=== PATIENT | female | born 1990 | race African-American/Black ===

== ENCOUNTER 2016-11-01 17:01 | Emergency (ER) | payer OTHER ==
[2016-11-01] MEDS ORDERED: IBUPROFEN 600 MG TAB As Ordered ONE (18:31)
[2016-11-01 18:36] LABS: BASO % 0.3 % (0.0-1.0); EOS # 0.4 K/mm3 (0.0-0.50); EOS % 4.6 % (0.0-3.0); LARGE UNSTAINED CELL # 0.2 K/mm3 (0.0-0.4); LARGE UNSTAINED CELL % 3.2 % (0.0-4.0); LYMPH # 3.3 K/mm3 (1.5-6.5); LYMPH % 40.4 % (24.0-44.0); MEAN CORPUSCULAR HEMOGLOBIN 27.9 pg (27.0-33.0); MEAN CORPUSCULAR HGB CONC 32.3 g/dl (32.0-36.5); MEAN CORPUSCULAR VOLUME 86.5 fl (80.0-96.0); MONO # 0.4 K/mm3 (0.0-0.8); MONO % 4.5 % (0.0-5.0); NEUTROPHILS # 3.6 K/mm3 (1.8-7.7); NEUTROPHILS % 47.1 % (36.0-66.0); PLATELET COUNT, AUTOMATED 281 k/mm3 (150-450); RED CELL DISTRIBUTION WIDTH 12.8 % (11.5-14.5); WHITE BLOOD COUNT 7.7 K/mm3 (4.0-10.0)
--- NOTE | 2016-11-01 19:10 | REPUSA ---
CLINICAL HISTORY: Vaginal bleeding for one week. TECHNIQUE: Realtime sonographic images were obtained in multiple projections. FINDINGS: The uterus is anteverted measuring 6.8 x 2.6 x 3.8 cm. The endometrial echo pattern is within normal limits measuring 2.5 mm. There is no evidence of free fluid within the pelvic cul-de-sac. The right ovary measures 1.8 x 2.2 x 1.5 cm and the left ovary measures 2.3 x 1.4 x 0.8 cm. Both ova rosa maria are free of solid or cystic mass. There is no evidence for abnormal vascularity. IMPRESSION: Unremarkable study. Thank you for your kind referral of this patient. We appreciate the opportunity to participate in thi s patient's care.
--- NOTE | 2016-11-01 20:13 | EDDOCDS ---
Physician Documentation [facility] Name: Keena Kelley Age: 26 yrs Sex: Female : 1990 Arrival Date: 11/01/2016 Time: 17:01 Bed I4 / M4 Private MD: Kenny Cage MD Disposition: 11/01/16 19:47 Discharged to Home/Self Care. Impression: Abnormal uterine and vaginal bleeding, unspecified, Acute vaginitis - BACTERIAL. - Condition is Stable. - Discharge Instructions: Abnormal Uterine Bleeding, Bacterial Vaginosis. - Prescriptions for Flagyl 500 mg Oral Tablet - take 1 tablet by ORAL route every 12 hours for 7 days; 14 tablet. - Medication Reconciliation, Local Pharmacy Hours form. - Follow up: Private Physician; When: 2 - 3 days; Reason: Recheck today's complaints, Continuance of care. - Problem is new. - Symptoms have improved. - Notes: PLEASE USE MEDICATION INSTRUTCED, FOLLOW UP WITH YOUR INSOLE TAPER DOCTOR IN 2-3 DAYS, RETURN TO THE ER IF THE SYMPTOMS WORSEN OR BECOME CONCERNING Historical: - Allergies: Strawberries (Rash); oranges (Anaphylaxis); - Home Meds: 1. Valtrex 1 gram Oral tab once daily (Last dose: 11/01/2016 07:00) 2. Ventolin Rotahaler/Rotacaps Inhl Unknown as needed (Last dose: Unknown) 3. Adderall XR 10 mg Oral cp24 1 cap once daily (Last dose: 11/01/2016 07:00) 4. Breo Ellipta 200-25 mcg/dose inhalation dsdv 1 puff once daily (Last dose: 11/01/2016 07:00) - PMHx: Asthma; Narcolepsy; hsv; - PSHx: none; - Social history: Smoking status: Patient states was never smoker of tobacco. No barriers to communication noted, Speaks appropriately for age. - Family history: Not pertinent. - : The pt / caregiver states he / she is not on anticoagulants. Home medication list is obtained from the patient. - Exposure Risk Screening:: None identified. DIRECT MARKETING ANALYST: 11/01 17:16 LMP 11/01/2016 ml6 Vital Signs: 17:03 BP 143 / 80; Pulse 75; Resp 18; Temp 98.3(T); Pulse Ox 98% on R/A; Weight 110.68 kg / dem1 244.01 lbs; Height 5 ft. 6 in. (167.64 cm); Pain 7/10; 19:53 BP 113 / 67; Pulse 62; Resp 18; Temp 99.4; Pulse Ox 97% ; Pain 6/10; ajs 17:03 Body Mass Index 39.38 (110.68 kg, 167.64 cm) dem1 MDM: 18:11 UCG by Nursing ordered. ck7 18:11 Set up pelvic ordered. ck7 18:11 IV Saline Lock ordered. ck7 18:11 NS 0.9% 1000 ml IV at bolus once ordered. ck7 18:13 CBC with Diff Ordered. EDMS 18:13 GC & Chlamydia Amplification Ordered. EDMS 18:13 Wet Prep Ordered. EDMS 18:13 -US Pelvic Non-Ob Complete Ordered. EDMS 18:13 DUPLEX SCAN LIMITED (DOPPLER)+US Ordered. EDMS 18:17 Ibuprofen 600 mg PO once ordered. ck7 18:24 Transvaginal NON- US Ordered. EDMS 18:36 Financial registration complete. gjb 18:46 [facility] Payment Agreement was scanned into [employer] and attached to record. gjb 19:17 CBC with Diff Reviewed. ck7 19:17 Wet Prep Reviewed. ck7 19:17 -US Pelvic Non-Ob Complete Reviewed. ck7 Point of Care Testing: Urine : 18:18 hCG Reading: Negative; Control Reading: Positive; ar3 Ranges: Administered Medications: 18:36 Drug: NS 0.9% 1000 ml [sodium chloride 0.9 % intravenous solution] Route: IV; Rate: jjr bolus; Site: left antecubital; 20:11 Follow up: IV Status: Completed infusion; IV Intake: 1000ml jf3 18:36 Drug: Ibuprofen 600 mg [ibuprofen 600 mg tablet (1 tabs)] Route: PO; jjr Signatures: Dispatcher [employer] EDMS Triston Calero, RN RN ml6 Elzbieta Can RN RN js13 Buzz Cox, RPA-C RPA-Cck7 Narinder Dong RN RN jf3 Le Morel gjb Gisell Anderson RN jjr The chart was reviewed and I authenticate all verbal orders and agree with the evaluation and treatment provided.Attachments: 18:46 [facility] Payment Agreement gjb MTDD
--- NOTE | 2016-11-01 20:13 | EDDOCDS ---
Nurse's Notes [facility] Name: Keena Kelley Age: 26 yrs Sex: Female : 1990 Arrival Date: 11/01/2016 Time: 17:01 Bed I4 / M4 Private MD: Kenny Cage MD Diagnosis: Abnormal uterine and vaginal bleeding, unspecified;Acute vaginitis-BACTERIAL Presentation: 11/01 17:13 Presenting complaint: Patient states: states that she has been having vaginal bleeding ml6 x 1 week, states sent here by Dr. Man for transvaginal US. Risk factors: The patient reports no loss of conciousness prior to arrival. This patient has not had a hysterectomy. This patient has not begun menopause. Adult Sepsis Screening: The patient does not have new or worsening altered mentation. Patient's respiratory rate is less than 22. Systolic blood pressure is greater than 100. Patient has a qSOFA score of 0- Negative Sepsis Screen. Suicide/Homicide risk assessment- the patient denies having any suicidal and/or homicidal ideations and does not present with any other emotional, behavioral or mental health complaints. Status: Patient is not a clinical services manager or dependent. Transition of care: patient was not received from another setting of care. 17:13 Acuity: RAYMUNDO Level 3 ml6 17:13 Method Of Arrival: Walkin/Carried/Asstd ml6 Triage Assessment: 17:16 General: Appears in no apparent distress, Behavior is appropriate for age, cooperative. ml6 Pain: Location: pelvis Pain currently is 3 out of 10 on a pain scale. Pain does not radiate. Quality of pain is described as crampy, Pain began 1 week BI DATA MODELER. HIV screening NA for this visit Offered previously. : Reports vaginal bleeding that is bright red. WATER TRAINER: 17:16 LMP 11/01/2016 ml6 Historical: - Allergies: Strawberries (Rash); oranges (Anaphylaxis); - Home Meds: 1. Valtrex 1 gram Oral tab once daily (Last dose: 11/01/2016 07:00) 2. Ventolin Rotahaler/Rotacaps Inhl Unknown as needed (Last dose: Unknown) 3. Adderall XR 10 mg Oral cp24 1 cap once daily (Last dose: 11/01/2016 07:00) 4. Breo Ellipta 200-25 mcg/dose inhalation dsdv 1 puff once daily (Last dose: 11/01/2016 07:00) - PMHx: Asthma; Narcolepsy; hsv; - PSHx: none; - Social history: Smoking status: Patient states was never smoker of tobacco. No barriers to communication noted, Speaks appropriately for age. - Family history: Not pertinent. - : The pt / caregiver states he / she is not on anticoagulants. Home medication list is obtained from the patient. - Exposure Risk Screening:: None identified. Screenin:50 Screening information is obtained from the patient. Fall risk: No risks identified. js13 Assistance ADL's: requires no assistance with activities of daily living. Abuse/DV Screen: The patient / caregiver reports he/she is: not in a situation that causes fear, pain or injury. Nutritional screening: No deficits noted. Advance Directives: There is no active DNR order. home support is adequate. Assessment: 18:28 General: Appears in no apparent distress, well nourished, well groomed, Behavior is jjr appropriate for age. Neurological: No deficits noted. Neurological: Reports headache since waking in triage room, right side of head. Respiratory: No deficits noted. : deferred to provider Reports cramping in bilateral lower quadrant(s) vaginal bleeding that is spotty. Derm: No deficits noted. 19:40 Adult Sepsis Screening: The patient does not have new or worsening altered mentation. rs3 Patient's respiratory rate is less than 22. Systolic blood pressure is greater than 100. General: Appears in no apparent distress, comfortable, Behavior is appropriate for age, cooperative. Pain: Location: abdomen Pain currently is 5 out of 10 on a pain scale. Quality of pain is described as crampy. Neurological: Level of Consciousness is awake, alert, Oriented to person, place, time. Respiratory: Airway is patent Respiratory effort is even, unlabored, Respiratory pattern is regular, symmetrical. Derm: Skin is normal. 20:09 General: Appears in no apparent distress, comfortable, Behavior is appropriate for age, jf3 cooperative. Neurological: Level of Consciousness is awake, alert, Oriented to person, place, time. Cardiovascular: Capillary refill < 3 seconds Chest pain is denied. Respiratory: Airway is patent Respiratory effort is even, unlabored, Respiratory pattern is regular, symmetrical. Derm: Skin is pink, warm & dry. Vital Signs: 17:03 BP 143 / 80; Pulse 75; Resp 18; Temp 98.3(T); Pulse Ox 98% on R/A; Weight 110.68 kg; dem1 Height 5 ft. 6 in. (167.64 cm); Pain 7/10; 19:53 BP 113 / 67; Pulse 62; Resp 18; Temp 99.4; Pulse Ox 97% ; Pain 6/10; ajs 17:03 Body Mass Index 39.38 (110.68 kg, 167.64 cm) [facility] Vitals: 17:03 Log In Time: November 01, 2016 at 15:47. [facility] ED Course: 17:02 Patient visited by Mariella Gonzalez. dem1 17:02 Kenny Cage is Private Physician. dem1 17:02 Patient moved to Waiting dem1 17:05 Patient moved to Pre RCE dem1 17:14 Triage Initiated ml6 17:38 Patient moved to Triage 1 ar3 17:50 The patient / caregiver is instructed regarding the plan of care and ED course. js13 17:50 No IV's were initiated during this patient's visit. No procedures done that require js13 assistance. 18:02 Buzz Cox RPA-C is PHCP. ck7 18:02 Jake Fields MD is Attending Physician. ck7 18:02 Patient visited by Buzz Cox RPA-C. ck7 18:11 Gisell Anderson, TED is Primary Nurse. ar3 18:11 Patient moved to I4 / M4 ar3 18:18 Patient visited by Harleen Mosley PCA. ar3 18:28 CBC with Diff Sent. jjr 18:28 Inserted saline lock: 20 gauge in left antecubital area and blood collected. Labs jjr drawn. (by ED staff). Sent per order to lab. 18:29 Patient visited by Gisell Anderson RN. jjr 18:29 Patient moved to Ultrasound br3 18:45 Patient moved to I4 / M4 br3 18:46 [facility] Payment Agreement was scanned into [employer] and attached to record. gjb 19:00 Patient visited by Buzz Cox RPA-C. ck7 19:06 Primary Nurse role handed off by Gisell Anderson, RN jjr 19:17 - Pelvic Non-Ob Complete Returned. EDMS 19:41 Patient visited by Fatoumata Belle RN. rs3 19:41 Patient visited by Buzz Cox RPA-C. ck7 19:53 Patient visited by Geraldine Carrion. ajs 20:09 Discontinued IV lock intact, bleeding controlled, pressure dressing applied, No jf3 redness/swelling at site. Administered Medications: 18:36 Drug: NS 0.9% 1000 ml [sodium chloride 0.9 % intravenous solution] Route: IV; Rate: jjr bolus; Site: left antecubital; 20:11 Follow up: IV Status: Completed infusion; IV Intake: 1000ml jf3 18:36 Drug: Ibuprofen 600 mg [ibuprofen 600 mg tablet (1 tabs)] Route: PO; jjr Point of Care Testing: Urine : 18:18 hCG Reading: Negative; Control Reading: Positive; ar3 Ranges: Intake: 20:11 IV: 1000.00ml; Total: 1000.00ml. jf3 Order Results: Lab Order: CBC with Diff; SPEC'M 11/01/16 18:24 Test: WHITE BLOOD COUNT; Value: 7.7; Range: 4.0-10.0; Units: K/mm3; Status: F Test: RED BLOOD COUNT; Value: 4.72; Range: 4.00-5.40; Units: M/mm3; Status: F Test: HEMOGLOBIN; Value: 13.2; Range: 12.0-16.0; Units: g/dl; Status: F Test: HEMATOCRIT; Value: 40.8; Range: 36.0-47.0; Units: %; Status: F Test: MEAN CORPUSCULAR VOLUME; Value: 86.5; Range: 80.0-96.0; Units: fl; Status: F Test: MEAN CORPUSCULAR HEMOGLOBIN; Value: 27.9; Range: 27.0-33.0; Units: pg; Status: F Test: MEAN CORPUSCULAR HGB CONC; Value: 32.3; Range: 32.0-36.5; Units: g/dl; Status: F Test: RED CELL DISTRIBUTION WIDTH; Value: 12.8; Range: 11.5-14.5; Units: %; Status: F Test: PLATELET COUNT, AUTOMATED; Value: 281; Range: 150-450; Units: k/mm3; Status: F Test: NEUTROPHILS %; Value: 47.1; Range: 36.0-66.0; Units: %; Status: F Test: LYMPH %; Value: 40.4; Range: 24.0-44.0; Units: %; Status: F Test: MONO %; Value: 4.5; Range: 0.0-5.0; Units: %; Status: F Test: EOS %; Value: 4.6; Range: 0.0-3.0; Abnormal: Above high normal; Units: %; Status: F Test: BASO %; Value: 0.3; Range: 0.0-1.0; Units: %; Status: F Test: LARGE UNSTAINED CELL %; Value: 3.2; Range: 0.0-4.0; Units: %; Status: F Test: NEUTROPHILS #; Value: 3.6; Range: 1.8-7.7; Units: K/mm3; Status: F Test: LYMPH #; Value: 3.3; Range: 1.5-6.5; Units: K/mm3; Status: F Test: MONO #; Value: 0.4; Range: 0.0-0.8; Units: K/mm3; Status: F Test: EOS #; Value: 0.4; Range: 0.0-0.50; Units: K/mm3; Status: F Test: BASO #; Value: 0.0; Range: 0.0-0.2; Units: K/mm3; Status: F Test: LARGE UNSTAINED CELL #; Value: 0.2; Range: 0.0-0.4; Units: K/mm3; Status: F Lab Order: Wet Prep; SPEC'M 11/01/16 18:24 Test: WET PREP; Value: WET PREP RESULT; Status: F Test: WET PREP; Value: MANY EPITHELIAL CELLS PRESENT; Status: F Test: WET PREP; Value: CLUE CELLS PRESENT; Status: F Test: WET PREP; Value: MANY SHORT RODS PRESENT; Status: F Test: WET PREP; Value: FEW WBC; Status: F Test: WET PREP; Value: FEW RBC; Status: F Radiology Order: -US Pelvic Non-Ob Complete Test: -US Pelvic Non-Ob Complete REASON FOR EXAMINATION: Vaginal Bleeding - Nn-; ; CLINICAL HISTORY: Vaginal bleeding for one week.; ; TECHNIQUE: Realtime sonographic images were obtained in multiple projections.; ; FINDINGS:; The uterus is anteverted measuring 6.8 x 2.6 x 3.8 cm. The endometrial echo pattern is within normal; limits measuring 2.5 mm.; ; There is no evidence of free fluid within the pelvic cul-de-sac.; ; The right ovary measures 1.8 x 2.2 x 1.5 cm and the left ovary measures 2.3 x 1.4 x 0.8 cm. Both ova; rosa maria are free of solid or cystic mass.; ; There is no evidence for abnormal vascularity.; ; IMPRESSION:; Unremarkable study.; ; Thank you for your kind referral of this patient. We appreciate the opportunity to participate in [facility]; s patient's care.; ; ; ; ; ; Outcome: 19:47 Discharge ordered by Provider. ck7 20:11 Discharge Assessment: Patient awake, alert and oriented x 3. No cognitive and/or jf3 functional deficits noted. Patient verbalized understanding of disposition instructions. patient administered narcotics - no. The following High Risk Discharge criteria are identified: None. Discharged to home ambulatory. Condition: good. Discharge instructions given to patient, Instructed on discharge instructions, follow up and referral plans. medication usage, Demonstrated understanding of instructions, medications, Pt was receptive of discharge instructions/ teaching. Ultrasound Study completed. Property :Personal belongings accompany Pt. 20:12 Patient left the ED. jf3 Signatures: Dispatcher [employer] EDMS Gisell Anderson, RN RN jFatoumata Quick,RN RN rs3 Triston Calero RN RN ml6 Elvira Anderson br3 Harleen Mosley, JUNIOR ART DIRECTOR JUNIOR ART DIRECTOR ar3 Geraldine Carrion Demeishia dem1 Sullivan, Jennifer,RN RN js13 Buzz Cox, RPA-C RPA-Cck7 Narinder Dong,TED RN jf3 Le Morel MTDD
--- NOTE | 2016-11-03 21:12 | EDDOCDS ---
Physician Documentation [facility] Name: Keena Kelley Age: 26 yrs Sex: Female : 1990 Arrival Date: 11/01/2016 Time: 17:01 Bed I4 / M4 Private MD: Kenny Cage MD Disposition: 11/01/16 19:47 Discharged to Home/Self Care. Impression: Abnormal uterine and vaginal bleeding, unspecified, Acute vaginitis - BACTERIAL. - Condition is Stable. - Discharge Instructions: Abnormal Uterine Bleeding, Bacterial Vaginosis. - Prescriptions for Flagyl 500 mg Oral Tablet - take 1 tablet by ORAL route every 12 hours for 7 days; 14 tablet. - Medication Reconciliation, Local Pharmacy Hours form. - Follow up: Private Physician; When: 2 - 3 days; Reason: Recheck today's complaints, Continuance of care. - Problem is new. - Symptoms have improved. - Notes: PLEASE USE MEDICATION INSTRUTCED, FOLLOW UP WITH YOUR CROZE CUTTER DOCTOR IN 2-3 DAYS, RETURN TO THE ER IF THE SYMPTOMS WORSEN OR BECOME CONCERNING Historical: - Allergies: Strawberries (Rash); oranges (Anaphylaxis); - Home Meds: 1. Valtrex 1 gram Oral tab once daily (Last dose: 11/01/2016 07:00) 2. Ventolin Rotahaler/Rotacaps Inhl Unknown as needed (Last dose: Unknown) 3. Adderall XR 10 mg Oral cp24 1 cap once daily (Last dose: 11/01/2016 07:00) 4. Breo Ellipta 200-25 mcg/dose inhalation dsdv 1 puff once daily (Last dose: 11/01/2016 07:00) - PMHx: Asthma; Narcolepsy; hsv; - PSHx: none; - Social history: Smoking status: Patient states was never smoker of tobacco. No barriers to communication noted, Speaks appropriately for age. - Family history: Not pertinent. - : The pt / caregiver states he / she is not on anticoagulants. Home medication list is obtained from the patient. - Exposure Risk Screening:: None identified. PYTHON PROGRAMMER: 11/01 17:16 LMP 11/01/2016 ml6 Vital Signs: 17:03 BP 143 / 80; Pulse 75; Resp 18; Temp 98.3(T); Pulse Ox 98% on R/A; Weight 110.68 kg / dem1 244.01 lbs; Height 5 ft. 6 in. (167.64 cm); Pain 7/10; 19:53 BP 113 / 67; Pulse 62; Resp 18; Temp 99.4; Pulse Ox 97% ; Pain 6/10; ajs 17:03 Body Mass Index 39.38 (110.68 kg, 167.64 cm) dem1 MDM: 18:11 UCG by Nursing ordered. ck7 18:11 Set up pelvic ordered. ck7 18:11 IV Saline Lock ordered. ck7 18:11 NS 0.9% 1000 ml IV at bolus once ordered. ck7 18:13 CBC with Diff Ordered. EDMS 18:13 GC & Chlamydia Amplification Ordered. EDMS 18:13 Wet Prep Ordered. EDMS 18:13 -US Pelvic Non-Ob Complete Ordered. EDMS 18:13 DUPLEX SCAN LIMITED (DOPPLER)+US Ordered. EDMS 18:17 Ibuprofen 600 mg PO once ordered. ck7 18:24 Transvaginal NON- US Ordered. EDMS 18:36 Financial registration complete. gjb 18:46 [facility] Payment Agreement was scanned into [employer] and attached to record. gjb 19:17 CBC with Diff Reviewed. ck7 19:17 Wet Prep Reviewed. ck7 19:17 -US Pelvic Non-Ob Complete Reviewed. ck7 11/02 11:03 T-Sheet-- Draft Copy was scanned into [employer] and attached to record. gb 11:03 Radiology Report was scanned into [employer] and attached to record. Point of Care Testing: Urine : 11/01 18:18 hCG Reading: Negative; Control Reading: Positive; ar3 Ranges: Administered Medications: 18:36 Drug: NS 0.9% 1000 ml [sodium chloride 0.9 % intravenous solution] Route: IV; Rate: jjr bolus; Site: left antecubital; 20:11 Follow up: IV Status: Completed infusion; IV Intake: 1000ml jf3 18:36 Drug: Ibuprofen 600 mg [ibuprofen 600 mg tablet (1 tabs)] Route: PO; jjr Signatures: Dispatcher [employer] EDMS Smita Molina, Reg Reg gb Triston Calero, RN RN ml6 Elzbieta aCnRN RN js13 Buzz Cox RPA-C RPA-Cck7 Narinder Dong,RN RN jf3 Le Morelb Gisell Anderson RN jjr The chart was reviewed and I authenticate all verbal orders and agree with the evaluation and treatment provided.Attachments: 18:46 [facility] Payment Agreement gjb 11/02 11:03 T-Sheet-- Draft Copy gb Chart Complete MTDD
--- NOTE | 2016-11-03 21:12 | EDDOCDS ---
Nurse's Notes [facility] Name: Keena Kelley Age: 26 yrs Sex: Female : 1990 Arrival Date: 11/01/2016 Time: 17:01 Bed I4 / M4 Private MD: Kenny Cage MD Diagnosis: Abnormal uterine and vaginal bleeding, unspecified;Acute vaginitis-BACTERIAL Presentation: 11/01 17:13 Presenting complaint: Patient states: states that she has been having vaginal bleeding ml6 x 1 week, states sent here by Dr. Man for transvaginal US. Risk factors: The patient reports no loss of conciousness prior to arrival. This patient has not had a hysterectomy. This patient has not begun menopause. Adult Sepsis Screening: The patient does not have new or worsening altered mentation. Patient's respiratory rate is less than 22. Systolic blood pressure is greater than 100. Patient has a qSOFA score of 0- Negative Sepsis Screen. Suicide/Homicide risk assessment- the patient denies having any suicidal and/or homicidal ideations and does not present with any other emotional, behavioral or mental health complaints. Status: Patient is not a service sprinkler helper or dependent. Transition of care: patient was not received from another setting of care. 17:13 Acuity: RAYMUNDO Level 3 ml6 17:13 Method Of Arrival: Walkin/Carried/Asstd ml6 Triage Assessment: 17:16 General: Appears in no apparent distress, Behavior is appropriate for age, cooperative. ml6 Pain: Location: pelvis Pain currently is 3 out of 10 on a pain scale. Pain does not radiate. 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 HIV screening NA for this visit Offered previously. : Reports vaginal bleeding that is bright red. 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 Valtrex 1 gram Oral tab once daily (Last dose: 11/01/2016 07:00) 2. Ventolin Rotahaler/Rotacaps Inhl Unknown as needed (Last dose: Unknown) 3. Adderall XR 10 mg Oral cp24 1 cap once daily (Last dose: 11/01/2016 07:00) 4. Breo Ellipta 200-25 mcg/dose inhalation dsdv 1 puff once daily (Last dose: 11/01/2016 07:00) - PMHx: Asthma; Narcolepsy; hsv; - PSHx: none; - Social history: Smoking status: Patient states was never smoker of tobacco. No barriers to communication noted, Speaks appropriately for age. - Family history: Not pertinent. - : The pt / caregiver states he / she is not on anticoagulants. Home medication list is obtained from the patient. - Exposure Risk Screening:: None identified. Screenin:50 Screening information is obtained from the patient. Fall risk: No risks identified. js13 Assistance ADL's: requires no assistance with activities of daily living. Abuse/DV Screen: The patient / caregiver reports he/she is: not in a situation that causes fear, pain or injury. Nutritional screening: No deficits noted. Advance Directives: There is no active DNR order. home support is adequate. Assessment: 18:28 General: Appears in no apparent distress, well nourished, well groomed, Behavior is jjr appropriate for age. Neurological: No deficits noted. Neurological: Reports headache since waking in triage room, right side of head. Respiratory: No deficits noted. : deferred to provider Reports cramping in bilateral lower quadrant(s) vaginal bleeding that is spotty. Derm: No deficits noted. 19:40 Adult Sepsis Screening: The patient does not have new or worsening altered mentation. rs3 Patient's respiratory rate is less than 22. Systolic blood pressure is greater than 100. General: Appears in no apparent distress, comfortable, Behavior is appropriate for age, cooperative. Pain: Location: abdomen Pain currently is 5 out of 10 on a pain scale. Quality of pain is described as crampy. Neurological: Level of Consciousness is awake, alert, Oriented to person, place, time. Respiratory: Airway is patent Respiratory effort is even, unlabored, Respiratory pattern is regular, symmetrical. Derm: Skin is normal. 20:09 General: Appears in no apparent distress, comfortable, Behavior is appropriate for age, jf3 cooperative. Neurological: Level of Consciousness is awake, alert, Oriented to person, place, time. Cardiovascular: Capillary refill < 3 seconds Chest pain is denied. Respiratory: Airway is patent Respiratory effort is even, unlabored, Respiratory pattern is regular, symmetrical. Derm: Skin is pink, warm & dry. Vital Signs: 17:03 BP 143 / 80; Pulse 75; Resp 18; Temp 98.3(T); Pulse Ox 98% on R/A; Weight 110.68 kg; dem1 Height 5 ft. 6 in. (167.64 cm); Pain 7/10; 19:53 BP 113 / 67; Pulse 62; Resp 18; Temp 99.4; Pulse Ox 97% ; Pain 6/10; ajs 17:03 Body Mass Index 39.38 (110.68 kg, 167.64 cm) [facility] Vitals: 17:03 Log In Time: November 01, 2016 at 15:47. [facility] ED Course: 17:02 Patient visited by Mariella Gonzalez. dem1 17:02 Kenny Cage is Private Physician. dem1 17:02 Patient moved to Waiting dem1 17:05 Patient moved to Pre RCE dem1 17:14 Triage Initiated ml6 17:38 Patient moved to Triage 1 ar3 17:50 The patient / caregiver is instructed regarding the plan of care and ED course. js13 17:50 No IV's were initiated during this patient's visit. No procedures done that require js13 assistance. 18:02 Buzz Cox RPA-C is PHCP. ck7 18:02 Jake Fields MD is Attending Physician. ck7 18:02 Patient visited by Buzz Cox RPA-C. ck7 18:11 Gisell Anderson, TED is Primary Nurse. ar3 18:11 Patient moved to I4 / M4 ar3 18:18 Patient visited by Harleen Mosley PCA. ar3 18:28 CBC with Diff Sent. jjr 18:28 Inserted saline lock: 20 gauge in left antecubital area and blood collected. Labs jjr drawn. (by ED staff). Sent per order to lab. 18:29 Patient visited by Gisell Anderson RN. jjr 18:29 Patient moved to Ultrasound br3 18:45 Patient moved to I4 / M4 br3 18:46 [facility] Payment Agreement was scanned into [employer] and attached to record. gjb 19:00 Patient visited by Buzz Cox RPA-C. ck7 19:06 Primary Nurse role handed off by Gisell Anderson, RN jjr 19:17 -US Pelvic Non-Ob Complete Returned. EDMS 19:41 Patient visited by Fatoumata Belle RN. rs3 19:41 Patient visited by Buzz Cox RPA-C. ck7 19:53 Patient visited by Geraldine Carrion. ajs 20:09 Discontinued IV lock intact, bleeding controlled, pressure dressing applied, No jf3 redness/swelling at site. 11/02 11:03 T-Sheet-- Draft Copy was scanned into [employer] and attached to record. gb 11:03 Radiology Report was scanned into [employer] and attached to record. gb Administered Medications: 11/01 18:36 Drug: NS 0.9% 1000 ml [sodium chloride 0.9 % intravenous solution] Route: IV; Rate: jjr bolus; Site: left antecubital; 20:11 Follow up: IV Status: Completed infusion; IV Intake: 1000ml jf3 18:36 Drug: Ibuprofen 600 mg [ibuprofen 600 mg tablet (1 tabs)] Route: PO; jjr Point of Care Testing: Urine : 18:18 hCG Reading: Negative; Control Reading: Positive; ar3 Ranges: Intake: 20:11 IV: 1000.00ml; Total: 1000.00ml. jf3 Order Results: Lab Order: CBC with Diff; SPEC'M 11/01/16 18:24 Test: WHITE BLOOD COUNT; Value: 7.7; Range: 4.0-10.0; Units: K/mm3; Status: F Test: RED BLOOD COUNT; Value: 4.72; Range: 4.00-5.40; Units: M/mm3; Status: F Test: HEMOGLOBIN; Value: 13.2; Range: 12.0-16.0; Units: g/dl; Status: F Test: HEMATOCRIT; Value: 40.8; Range: 36.0-47.0; Units: %; Status: F Test: MEAN CORPUSCULAR VOLUME; Value: 86.5; Range: 80.0-96.0; Units: fl; Status: F Test: MEAN CORPUSCULAR HEMOGLOBIN; Value: 27.9; Range: 27.0-33.0; Units: pg; Status: F Test: MEAN CORPUSCULAR HGB CONC; Value: 32.3; Range: 32.0-36.5; Units: g/dl; Status: F Test: RED CELL DISTRIBUTION WIDTH; Value: 12.8; Range: 11.5-14.5; Units: %; Status: F Test: PLATELET COUNT, AUTOMATED; Value: 281; Range: 150-450; Units: k/mm3; Status: F Test: NEUTROPHILS %; Value: 47.1; Range: 36.0-66.0; Units: %; Status: F Test: LYMPH %; Value: 40.4; Range: 24.0-44.0; Units: %; Status: F Test: MONO %; Value: 4.5; Range: 0.0-5.0; Units: %; Status: F Test: EOS %; Value: 4.6; Range: 0.0-3.0; Abnormal: Above high normal; Units: %; Status: F Test: BASO %; Value: 0.3; Range: 0.0-1.0; Units: %; Status: F Test: LARGE UNSTAINED CELL %; Value: 3.2; Range: 0.0-4.0; Units: %; Status: F Test: NEUTROPHILS #; Value: 3.6; Range: 1.8-7.7; Units: K/mm3; Status: F Test: LYMPH #; Value: 3.3; Range: 1.5-6.5; Units: K/mm3; Status: F Test: MONO #; Value: 0.4; Range: 0.0-0.8; Units: K/mm3; Status: F Test: EOS #; Value: 0.4; Range: 0.0-0.50; Units: K/mm3; Status: F Test: BASO #; Value: 0.0; Range: 0.0-0.2; Units: K/mm3; Status: F Test: LARGE UNSTAINED CELL #; Value: 0.2; Range: 0.0-0.4; Units: K/mm3; Status: F Lab Order: GC & Chlamydia Amplification; SPEC'M 11/01/16 18:24 Test: CHLAMYDIA DNA AMPLIFICATION; Value: NEGATIVE; Range: NEGATIVE; Status: F Test: GC DNA AMPLIFICATION; Value: NEGATIVE; Range: NEGATIVE; Status: F Lab Order: Wet Prep; SPEC'M 11/01/16 18:24 Test: WET PREP; Value: WET PREP RESULT; Status: F Test: WET PREP; Value: MANY EPITHELIAL CELLS PRESENT; Status: F Test: WET PREP; Value: CLUE CELLS PRESENT; Status: F Test: WET PREP; Value: MANY SHORT RODS PRESENT; Status: F Test: WET PREP; Value: FEW WBC; Status: F Test: WET PREP; Value: FEW RBC; Status: F Radiology Order: -US Pelvic Non-Ob Complete Test: -US Pelvic Non-Ob Complete REASON FOR EXAMINATION: Vaginal Bleeding - Nn-; ; CLINICAL HISTORY: Vaginal bleeding for one week.; ; TECHNIQUE: Realtime sonographic images were obtained in multiple projections.; ; FINDINGS:; The uterus is anteverted measuring 6.8 x 2.6 x 3.8 cm. The endometrial echo pattern is within normal; limits measuring 2.5 mm.; ; There is no evidence of free fluid within the pelvic cul-de-sac.; ; The right ovary measures 1.8 x 2.2 x 1.5 cm and the left ovary measures 2.3 x 1.4 x 0.8 cm. Both ova; rosa maria are free of solid or cystic mass.; ; There is no evidence for abnormal vascularity.; ; IMPRESSION:; Unremarkable study.; ; Thank you for your kind referral of this patient. We appreciate the opportunity to participate in thi; s patient's care.; ; ; ; ; ; Outcome: 19:47 Discharge ordered by Provider. ck7 20:11 Discharge Assessment: Patient awake, alert and oriented x 3. No cognitive and/or jf3 functional deficits noted. Patient verbalized understanding of disposition instructions. patient administered narcotics - no. The following High Risk Discharge criteria are identified: None. Discharged to home ambulatory. Condition: good. Discharge instructions given to patient, Instructed on discharge instructions, follow up and referral plans. medication usage, Demonstrated understanding of instructions, medications, Pt was receptive of discharge instructions/ teaching. Ultrasound Study completed. Property :Personal belongings accompany Pt. 20:12 Patient left the ED. jf3 Signatures: Dispatcher [employer] EDMS Smita Molina, Parth Reg Gisell Chavez RN RN Fatoumata Fuller RN RN rs3 Triston Calero RN RN ml6 Elvira Anderson br3 Harleen Mosley, MUSHROOM PACKER MUSHROOM PACKER ar3 Murali, Geraldine Gonzalez, Mariella young1 Elzbieta Can,RN RN js13 Buzz Cox, RPA-C RPA-Cck7 Narinder Dogn RN RN jf3 Le Morel Chart Complete MTDD
--- NOTE | 2016-11-03 21:12 | EDDOCDS ---
Physician Documentation [facility] Name: Keena Kelley Age: 26 yrs Sex: Female : 1990 Arrival Date: 11/01/2016 Time: 17:01 Bed I4 / M4 Private MD: Kenny Cage MD Disposition: 11/01/16 19:47 Discharged to Home/Self Care. Impression: Abnormal uterine and vaginal bleeding, unspecified, Acute vaginitis - BACTERIAL. - Condition is Stable. - Discharge Instructions: Abnormal Uterine Bleeding, Bacterial Vaginosis. - Prescriptions for Flagyl 500 mg Oral Tablet - take 1 tablet by ORAL route every 12 hours for 7 days; 14 tablet. - Medication Reconciliation, Local Pharmacy Hours form. - Follow up: Private Physician; When: 2 - 3 days; Reason: Recheck today's complaints, Continuance of care. - Problem is new. - Symptoms have improved. - Notes: PLEASE USE MEDICATION INSTRUTCED, FOLLOW UP WITH YOUR IMPERSONATOR CHARACTER DOCTOR IN 2-3 DAYS, RETURN TO THE ER IF THE SYMPTOMS WORSEN OR BECOME CONCERNING Historical: - Allergies: Strawberries (Rash); oranges (Anaphylaxis); - Home Meds: 1. Valtrex 1 gram Oral tab once daily (Last dose: 11/01/2016 07:00) 2. Ventolin Rotahaler/Rotacaps Inhl Unknown as needed (Last dose: Unknown) 3. Adderall XR 10 mg Oral cp24 1 cap once daily (Last dose: 11/01/2016 07:00) 4. Breo Ellipta 200-25 mcg/dose inhalation dsdv 1 puff once daily (Last dose: 11/01/2016 07:00) - PMHx: Asthma; Narcolepsy; hsv; - PSHx: none; - Social history: Smoking status: Patient states was never smoker of tobacco. No barriers to communication noted, Speaks appropriately for age. - Family history: Not pertinent. - : The pt / caregiver states he / she is not on anticoagulants. Home medication list is obtained from the patient. - Exposure Risk Screening:: None identified. 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 6 in. (167.64 cm); Pain 7/10; 19:53 BP 113 / 67; Pulse 62; Resp 18; Temp 99.4; Pulse Ox 97% ; Pain 6/10; ajs 17:03 Body Mass Index 39.38 (110.68 kg, 167.64 cm) dem1 MDM: 18:11 UCG by Nursing ordered. ck7 18:11 Set up pelvic ordered. ck7 18:11 IV Saline Lock ordered. ck7 18:11 NS 0.9% 1000 ml IV at bolus once ordered. ck7 18:13 CBC with Diff Ordered. EDMS 18:13 GC & Chlamydia Amplification Ordered. EDMS 18:13 Wet Prep Ordered. EDMS 18:13 -US Pelvic Non-Ob Complete Ordered. EDMS 18:13 DUPLEX SCAN LIMITED (DOPPLER)+US Ordered. EDMS 18:17 Ibuprofen 600 mg PO once ordered. ck7 18:24 Transvaginal NON- US Ordered. EDMS 18:36 Financial registration complete. gjb 18:46 [facility] Payment Agreement was scanned into [employer] and attached to record. gjb 19:17 CBC with Diff Reviewed. ck7 19:17 Wet Prep Reviewed. ck7 19:17 -US Pelvic Non-Ob Complete Reviewed. ck7 11/02 11:03 T-Sheet-- Draft Copy was scanned into [employer] and attached to record. gb 11:03 Radiology Report was scanned into [employer] and attached to record. Point of Care Testing: Urine : 11/01 18:18 hCG Reading: Negative; Control Reading: Positive; ar3 Ranges: Administered Medications: 18:36 Drug: NS 0.9% 1000 ml [sodium chloride 0.9 % intravenous solution] Route: IV; Rate: jjr bolus; Site: left antecubital; 20:11 Follow up: IV Status: Completed infusion; IV Intake: 1000ml jf3 18:36 Drug: Ibuprofen 600 mg [ibuprofen 600 mg tablet (1 tabs)] Route: PO; jjr Signatures: Dispatcher [employer] EDMS Smita Molina, Reg Reg gb Triston Calero, RN RN ml6 Elzbieta CanRN RN js13 Buzz Cox RPA-C RPA-Cck7 Narinder Dong,RN RN jf3 Le Morelb Gisell Anderson RN jjr The chart was reviewed and I authenticate all verbal orders and agree with the evaluation and treatment provided.Attachments: 18:46 [facility] Payment Agreement gjb 11/02 11:03 T-Sheet-- Draft Copy gb Chart Complete MTDD
== END 2016-11-01 20:12 | disposition home or self-care (01) ==
LOC: M ED 17:01
DX: N93.8 Other specified abnormal uterine and vaginal bleeding (principal); N76.0 Acute vaginitis; J45.909 Unspecified asthma, uncomplicated; G47.419 Narcolepsy without cataplexy; B00.9 Herpesviral infection, unspecified; Z79.899 Other long term (current) drug therapy; Z91.018 Allergy to other foods

== ENCOUNTER → 2016-11-23 | Outpatient (REF) | payer OTHER ==
[2016-11-23 14:05] LABS: HIV SCRN NEGATIVE (NEGATIVE); HIV SCRN1 NEGATIVE (NEGATIVE)
[2016-11-23 14:06] LABS: CONTROL LINE INT CTR LINE PRESENT
[2016-11-26 00:06] LABS: HSV TYPE I IgM AB <1:10 titer (<1:10); HSV TYPE II IgM ABY <1:10 titer (<1:10)
== END ==
LOC: M SFHCLERA 08:57
PROVIDERS: ATTEND Family Medicine
DX: Z11.3 Encounter for screening for infections with a predominantly sexual mode of transmission (principal)

== ENCOUNTER → 2017-04-14 | Outpatient (REF) | payer OTHER, MEDICAID | LOC: M SFHCLERA 15:20 | PROVIDERS: ATTEND Physician Assistant | DX: N92.6 Irregular menstruation, unspecified (principal) ==

== ENCOUNTER → 2017-04-27 | Outpatient (CLI) | payer MEDICAID ==
[2017-04-27 13:46] LABS: BASO % 0.4 % (0.0-1.0); EOS # 0.2 K/mm3 (0.0-0.50); EOS % 2.8 % (0.0-3.0); LARGE UNSTAINED CELL # 0.1 K/mm3 (0.0-0.4); LARGE UNSTAINED CELL % 1.7 % (0.0-4.0); LYMPH # 2.1 K/mm3 (1.5-6.5); LYMPH % 30.2 % (24.0-44.0); MEAN CORPUSCULAR HEMOGLOBIN 29.2 pg (27.0-33.0); MEAN CORPUSCULAR HGB CONC 33.5 g/dl (32.0-36.5); MEAN CORPUSCULAR VOLUME 87.1 fl (80.0-96.0); MONO # 0.3 K/mm3 (0.0-0.8); MONO % 5.1 % (0.0-5.0); NEUTROPHILS % 59.8 % (36.0-66.0); PLATELET COUNT, AUTOMATED 259 k/mm3 (150-450); RED CELL DISTRIBUTION WIDTH 12.7 % (11.5-14.5); WHITE BLOOD COUNT 6.6 K/mm3 (4.0-10.0)
[2017-04-27 14:06] LABS: HBsAg Prenatal NEGATIVE (NEGATIVE)
== END ==
LOC: M SMT 11:16
PROVIDERS: ATTEND Advanced Practice Midwife
DX: Z34.81 Encounter for supervision of other normal pregnancy, first trimester (principal)

== ENCOUNTER 2017-04-30 15:16 | Emergency (ER) | payer OTHER, MEDICAID ==
[~2017-04-30] VITALS: Ht 167.6 cm; Wt 107.7 kg
[2017-04-30] MEDS ORDERED: NS 1,000 ML IV ONE (17:00)
[2017-04-30 17:16] LABS: BASO % 0.5 % (0.0-1.0); EOS # 0.2 K/mm3 (0.0-0.50); EOS % 1.9 % (0.0-3.0); LARGE UNSTAINED CELL # 0.1 K/mm3 (0.0-0.4); LARGE UNSTAINED CELL % 1.6 % (0.0-4.0); LYMPH # 2.1 K/mm3 (1.5-6.5); LYMPH % 25.3 % (24.0-44.0); MEAN CORPUSCULAR HEMOGLOBIN 28.6 pg (27.0-33.0); MEAN CORPUSCULAR HGB CONC 32.8 g/dl (32.0-36.5); MEAN CORPUSCULAR VOLUME 87.2 fl (80.0-96.0); MONO # 0.4 K/mm3 (0.0-0.8); MONO % 4.8 % (0.0-5.0); NEUTROPHILS # 5.6 K/mm3 (1.8-7.7); PLATELET COUNT, AUTOMATED 291 k/mm3 (150-450); RED CELL DISTRIBUTION WIDTH 12.5 % (11.5-14.5); WHITE BLOOD COUNT 8.4 K/mm3 (4.0-10.0)
[2017-04-30 17:48] LABS: ALBUMIN 3.4 GM/DL (3.2-5.2); ALBUMIN/GLOBULIN RATIO 0.97 (1.00-1.93); ALKALINE PHOSPHATASE 46 U/L (45-117); ALT/SGPT 22 U/L (12-78); ANION GAP 8 MEQ/L (8-16); AST/SGOT 13 U/L (15-37); BILIRUBIN,DIRECT < 0.1 MG/DL (0.0-0.2); BILIRUBIN,TOTAL 0.3 MG/DL (0.2-1.0); BLOOD UREA NITROGEN 7 MG/DL (7-18); CALCIUM LEVEL 9.1 MG/DL (8.5-10.1); CARBON DIOXIDE LEVEL 27 MEQ/L (21-32); CHLORIDE LEVEL 105 MEQ/L (98-107); CREATININE FOR GFR 0.87 MG/DL (0.55-1.02); GLOMERULAR FILTRATION RATE > 60.0 (>60); GLUCOSE, FASTING 74 MG/DL (70-105); POTASSIUM SERUM 3.9 MEQ/L (3.5-5.1); SODIUM LEVEL 140 MEQ/L (136-145); TOTAL PROTEIN 6.9 GM/DL (6.4-8.2)
--- NOTE | 2017-04-30 18:40 | REPUSA ---
CLINICAL HISTORY: Flank pain. TECHNIQUE: Realtime sonographic images were obtained in multiple projections. COMMENTS: The right kidney measures 10.8 cm and the left kidney measures 10 cm. Both kidneys are free of hyd ronephrosis. There is no evidence of solid or cystic mass. There is no perinephric fluid. There is no renal calculus. Bladder is empty. IMPRESSION: Normal study. Thank you for your kind referral of this patient.
--- NOTE | 2017-04-30 18:40 | REPUSA ---
CLINICAL HISTORY: Pain. TECHNIQUE: Transabdominal and endovaginal ultrasound of the pelvis was performed. FINDINGS: The uterus is anteverted. A pole is identified with crown-rump length of 1.6 cm, which corresponds to a gestational age o f 8 weeks and 0 days. heart motion is demonstrated, with a rate of 171 beats per minute. LIONEL is estimated at 18. Both ovaries are identified without adnexal mass or pelvic fluid collection. IMPRESSION: Single live IUP dated at 8 weeks 0 days.
[2017-04-30 20:07] VITALS: BP 160/74
== END 2017-04-30 20:20 | disposition home or self-care (01) ==
LOC: M ED 15:16
DX: O26.891 Other specified pregnancy related conditions, first trimester (principal); R10.9 Unspecified abdominal pain; O99.281 Endocrine, nutritional and metabolic diseases complicating pregnancy, first trimester; E86.0 Dehydration; Z3A.08 8 weeks gestation of pregnancy

== ENCOUNTER → 2017-06-28 | Outpatient (CLI) | payer OTHER, MEDICAID | LOC: M SMT 10:08 | PROVIDERS: ATTEND Obstetrics & Gynecology | DX: Z14.8 Genetic carrier of other disease (principal) ==

== ENCOUNTER → 2017-07-14 | Outpatient (CLI) | payer OTHER, MEDICAID ==
--- NOTE | 2017-07-15 04:59 | REP ---
Clinical: Anatomical evaluation. Comparison: 04/30/2017 . Findings: Examination demonstrates a single live intrauterine in cephalic presentation. motion is identified by technologist. Placenta is noted posteriorly and grade zero without evidence for placenta previa or abruption. A placental mina is identified measuring 27 x 28 x 15 mm. Amniotic fluid volume is normal. Cervix measures 3.5 cm in length and appears closed. No evidence for nuchal cord. Gestational age by LMP 18 weeks 1 day with LIONEL 12/14/2017. Gestational age by current measurements 18 week 6 days with LIONEL 12/10/2017 . FHR equals 141 beats per minute. BPD 4.3 cm 19 weeks 0 days HC 16.5 cm 19 weeks 2 days AC 13.4 cm 18 weeks 6 days FL 2.9 cm 19 weeks 0 days HL 2.7 cm 18 weeks 5 days HC/AC ratio 1.24 Estimated weight 265 grams ( 80th percentile). Anatomical assessment demonstrates normal structures including cranium, choroid plexus, cavum, cerebellum/posterior fossa, facial features, lungs, four-chamber heart/ventricular outflow tracts, diaphragm, stomach, cord insertion/three-vessel cord, kidneys/bladder, spine, and extremities. Impression: 1. Single live intrauterine in cephalic presentation demonstrating appropriate interval growth. 2. A 2.8 cm placental mina is identified. 3. With the exception of the lateral face view, anatomical assessment is complete and normal. Signed by Gagan Allison MD 07/15/2017 04:50 A
== END ==
LOC: M LRY 13:58
PROVIDERS: ATTEND Obstetrics & Gynecology
DX: Z34.82 Encounter for supervision of other normal pregnancy, second trimester (principal); Z3A.18 18 weeks gestation of pregnancy

== ENCOUNTER → 2017-08-16 | Outpatient (REF) | payer OTHER, MEDICAID | LOC: M LAB REF 17:00 | PROVIDERS: ATTEND Advanced Practice Midwife | DX: Z34.83 Encounter for supervision of other normal pregnancy, third trimester (principal); Z3A.00 Weeks of gestation of pregnancy not specified ==

== ENCOUNTER → 2017-09-08 | Outpatient (CLI) | payer OTHER, MEDICAID ==
[2017-09-08 14:01] LABS: MEAN CORPUSCULAR HEMOGLOBIN 28.9 pg (27.0-33.0); MEAN CORPUSCULAR HGB CONC 32.8 g/dl (32.0-36.5); MEAN CORPUSCULAR VOLUME 88.1 fl (80.0-96.0); PLATELET COUNT, AUTOMATED 321 10^3/uL (150-450); RED CELL DISTRIBUTION WIDTH 13.3 % (11.5-14.5); WHITE BLOOD COUNT 11.6 10^3/uL (4.0-10.0)
== END ==
LOC: M SMT 08:22
PROVIDERS: ATTEND Obstetrics & Gynecology
DX: Z34.82 Encounter for supervision of other normal pregnancy, second trimester (principal)

== ENCOUNTER 2017-09-20 20:25 | Outpatient (CLI) | payer OTHER, MEDICAID ==
[2017-09-20 21:17] VITALS: BP 120/68
== END 2017-09-20 21:50 | disposition home or self-care (01) ==
LOC: M LDO 20:25
PROVIDERS: ATTEND Obstetrics & Gynecology
DX: O99.89 Other specified diseases and conditions complicating pregnancy, childbirth and the puerperium (principal); Z3A.27 27 weeks gestation of pregnancy; R11.2 Nausea with vomiting, unspecified; R19.7 Diarrhea, unspecified; O99.612 Diseases of the digestive system complicating pregnancy, second trimester; O99.512 Diseases of the respiratory system complicating pregnancy, second trimester; J45.909 Unspecified asthma, uncomplicated; O99.342 Other mental disorders complicating pregnancy, second trimester; F41.9 Anxiety disorder, unspecified; F32.9 Major depressive disorder, single episode, unspecified; G47.419 Narcolepsy without cataplexy; O99.352 Diseases of the nervous system complicating pregnancy, second trimester

== ENCOUNTER 2017-10-07 19:33 | Emergency (ER) | payer OTHER, MEDICAID ==
[2017-10-07 20:55] LABS: AMORPHOUS SEDIMENT RFX SMALL (NEGATIVE); KETONE, URINE AUTO RFX NEGATIVE (NEGATIVE); LEUKOCYTE ESTERASE UR AUTO RFX NEGATIVE (NEGATIVE); MUCUS, URINE RFX SMALL (NEGATIVE); NITRITE, URINE AUTO RFX NEGATIVE (NEGATIVE); RBC, URINE AUTO RFX 2 /HPF (0-3); SPECIFIC GRAVITY UR AUTO RFX 1.021 (1.002-1.035); SQUAM EPITHELIAL CELL UR AURFX 2 /HPF (0-6); WBC, URINE AUTO RFX 0 /HPF (0-3)
== END 2017-10-07 21:22 | disposition admitted as inpatient to this hospital (09) ==
LOC: M ED 19:33
DX: R00.0 Tachycardia, unspecified (principal); R05 Cough; M54.5 Low back pain; Z3A.30 30 weeks gestation of pregnancy
CPT/HCPCS: 93005

== ENCOUNTER 2017-10-07 21:24 | Outpatient (CLI) | payer OTHER, MEDICAID ==
[2017-10-07] MEDS ORDERED: CYCLOBENZAPRINE 10 MG TAB PO (23:30)
[2017-10-07] MEDS: ACETAMINOPHEN 500 MG TAB PO (23:52)
[2017-10-08 00:02] LABS: BASO % 0.2 % (0.0-1.0); EOS # 0.3 10^3/uL (0.0-0.50); EOS % 2.3 % (0.0-3.0); HEMATOCRIT 34.3 % (36.0-47.0); HEMOGLOBIN 11.5 g/dl (12.0-16.0); IMMATURE GRANULOCYTE # 0.1 10^3/uL (0-0); IMMATURE GRANULOCYTE % 0.7 % (0-0); LYMPH # 0.8 10^3/uL (1.5-6.5); LYMPH % 6.8 % (24.0-44.0); MEAN CORPUSCULAR HEMOGLOBIN 28.5 pg (27.0-33.0); MEAN CORPUSCULAR HGB CONC 33.5 g/dl (32.0-36.5); MEAN CORPUSCULAR VOLUME 84.9 fl (80.0-96.0); MONO # 1.2 10^3/uL (0.0-0.8); NEUTROPHILS # 9.9 10^3/uL (1.8-7.7); PLATELET COUNT, AUTOMATED 285 10^3/uL (150-450); RED BLOOD COUNT 4.04 10^6/uL (4.00-5.40); RED CELL DISTRIBUTION WIDTH 13.4 % (11.5-14.5); WHITE BLOOD COUNT 12.4 10^3/uL (4.0-10.0)
[2017-10-08 00:51] LABS: ALBUMIN 2.7 GM/DL (3.2-5.2); ALBUMIN/GLOBULIN RATIO 0.82 (1.00-1.93); ALKALINE PHOSPHATASE 82 U/L (45-117); ALT/SGPT 17 U/L (12-78); ANION GAP 10 MEQ/L (8-16); AST/SGOT 17 U/L (7-37); BILIRUBIN,TOTAL 0.5 MG/DL (0.2-1.0); BLOOD UREA NITROGEN 6 MG/DL (7-18); CALCIUM LEVEL 8.8 MG/DL (8.5-10.1); CARBON DIOXIDE LEVEL 22 MEQ/L (21-32); CHLORIDE LEVEL 105 MEQ/L (98-107); CREATININE FOR GFR 0.84 MG/DL (0.55-1.02); GLOMERULAR FILTRATION RATE > 60.0 (>60); GLUCOSE, FASTING 101 MG/DL (70-105); LIPASE 72 U/L (73-393); POTASSIUM SERUM 3.6 MEQ/L (3.5-5.1); SODIUM LEVEL 137 MEQ/L (136-145)
== END 2017-10-08 07:30 | disposition home or self-care (01) ==
LOC: M LDO 21:24
DX: O99.89 Other specified diseases and conditions complicating pregnancy, childbirth and the puerperium (principal); Z3A.30 30 weeks gestation of pregnancy; R10.2 Pelvic and perineal pain; R50.9 Fever, unspecified; M54.5 Low back pain; Z91.018 Allergy to other foods
CPT/HCPCS: 59025

== ENCOUNTER 2017-10-13 14:26 | Outpatient (CLI) | payer OTHER, MEDICAID ==
[2017-10-13] MEDS ORDERED: LACTATED RINGER'S 1000 ML IV (14:52)
[2017-10-13 15:44] LABS: EOS # 0.1 10^3/uL (0.0-0.50); EOS % 2.1 % (0.0-3.0); HEMOGLOBIN 11.8 g/dl (12.0-16.0); IMMATURE GRANULOCYTE % 0.2 % (0-0); LYMPH # 1.8 10^3/uL (1.5-6.5); MEAN CORPUSCULAR HEMOGLOBIN 27.6 pg (27.0-33.0); MEAN CORPUSCULAR HGB CONC 32.8 g/dl (32.0-36.5); MEAN CORPUSCULAR VOLUME 84.1 fl (80.0-96.0); MONO # 0.4 10^3/uL (0.0-0.8); MONO % 8.3 % (0.0-5.0); NEUTROPHILS # 2.1 10^3/uL (1.8-7.7); NEUTROPHILS % 47.4 % (36.0-66.0); PLATELET COUNT, AUTOMATED 246 10^3/uL (150-450); RED BLOOD COUNT 4.28 10^6/uL (4.00-5.40); RED CELL DISTRIBUTION WIDTH 13.6 % (11.5-14.5); WHITE BLOOD COUNT 4.4 10^3/uL (4.0-10.0)
[2017-10-13] MEDS: LR 1,000 ML IV (15:45)
[2017-10-13 17:59] LABS: ALBUMIN 2.1 GM/DL (3.2-5.2); ALBUMIN/GLOBULIN RATIO 0.75 (1.00-1.93); ALKALINE PHOSPHATASE 78 U/L (45-117); ALT/SGPT 83 U/L (12-78); ANION GAP 9 MEQ/L (8-16); AST/SGOT 81 U/L (7-37); BILIRUBIN,TOTAL 0.4 MG/DL (0.2-1.0); BLOOD UREA NITROGEN 7 MG/DL (7-18); CALCIUM LEVEL 7.8 MG/DL (8.5-10.1); CARBON DIOXIDE LEVEL 23 MEQ/L (21-32); CHLORIDE LEVEL 108 MEQ/L (98-107); CREATININE FOR GFR 0.58 MG/DL (0.55-1.02); GLOMERULAR FILTRATION RATE > 60.0 (>60); GLUCOSE, FASTING 66 MG/DL (70-105); POTASSIUM SERUM 4.4 MEQ/L (3.5-5.1); SODIUM LEVEL 140 MEQ/L (136-145); TOTAL PROTEIN 4.9 GM/DL (6.4-8.2)
== END 2017-10-13 18:41 | disposition home or self-care (01) ==
LOC: M LDO 14:26
DX: O99.89 Other specified diseases and conditions complicating pregnancy, childbirth and the puerperium (principal); E86.0 Dehydration; Z3A.31 31 weeks gestation of pregnancy; R05 Cough; R09.89 Other specified symptoms and signs involving the circulatory and respiratory systems; Z91.018 Allergy to other foods
CPT/HCPCS: 96360

== ENCOUNTER → 2017-11-15 | Outpatient (REF) | payer OTHER, MEDICAID | LOC: M LAB REF 17:04 | DX: Z34.83 Encounter for supervision of other normal pregnancy, third trimester (principal) | CPT/HCPCS: 87081 ==

== ENCOUNTER 2017-11-29 17:37 | Inpatient (IN) | payer OTHER, MEDICAID ==
[2017-11-29] MEDS: LACTATED RINGER'S 1000 ML IV (17:40)
[2017-11-29] MEDS: LR 1,000 ML IV (17:42)
[2017-11-29 18:11] LABS: HEMATOCRIT 32.9 % (36.0-47.0); HEMOGLOBIN 10.7 g/dl (12.0-16.0); MEAN CORPUSCULAR HEMOGLOBIN 27.3 pg (27.0-33.0); MEAN CORPUSCULAR HGB CONC 32.5 g/dl (32.0-36.5); MEAN CORPUSCULAR VOLUME 83.9 fl (80.0-96.0); PLATELET COUNT, AUTOMATED 243 10^3/uL (150-450); RED BLOOD COUNT 3.92 10^6/uL (4.00-5.40); RED CELL DISTRIBUTION WIDTH 14.8 % (11.5-14.5); WHITE BLOOD COUNT 9.3 10^3/uL (4.0-10.0)
[2017-11-29] MEDS ORDERED: FENTANYL 2MCG/ML ROPIVACAINE 0.2% IN 0.9% NACL 200ML IVBAG As Ordered (19:13)
[2017-11-29] MEDS: OXYTOCIN DRIP 30 UNITS in APPROPRIATE DILUENT 1 EA IV (20:44)
[2017-11-29] MEDS ORDERED: FENTANYL/ROPIVACAINE/NACL BAG 200 ML EPIDURAL (21:00)
[2017-11-29] MEDS ORDERED: NALOXONE INJ 0.4 MG/1 ML VIAL (J2310) IV (21:00)
[2017-11-29] MEDS ORDERED: REFRIGERATOR IV KEYS XX (21:00)
[2017-11-29] MEDS ORDERED: LACTATED RINGER'S 1000 ML IV (21:00)
[2017-11-29] MEDS ORDERED: ONDANSETRON 4MG/2ML VIAL (J2405) IV (21:00)
[2017-11-29] MEDS ORDERED: ePHEDrine SULFATE 25 MG/5 ML(5MG/ML) SYRINGE IV (21:00)
[2017-11-29] MEDS ORDERED: diphenhydrAMINE INJ 50MG/ML VIAL (J1200) IV (21:00)
[2017-11-29] MEDS ORDERED: EPIDURAL COMMENT XX (21:00)
[2017-11-29] MEDS ORDERED: EPIDURAL/PCA KEYS XX (21:00)
[2017-11-30] MEDS: OXYTOCIN DRIP 30 UNITS in APPROPRIATE DILUENT 1 EA IV (06:09)
[2017-11-30] MEDS ORDERED: METHYLERGONOVINE MALEATE 0.2 MG TAB PO (06:15)
[2017-11-30] MEDS ORDERED: DIBUCAINE 1% OINTMENT 30GM TOP (06:15)
[2017-11-30] MEDS ORDERED: DOCUSATE SODIUM 100 MG CAP PO (06:15)
[2017-11-30] MEDS ORDERED: MEASLES,MUMPS,RUBELLA VACCINE INJ (MMR-II) (90707) SC (06:15)
[2017-11-30] MEDS ORDERED: RHOGAM 300 MCG (1500 IU) INJ (J2790) IM (06:15)
[2017-11-30] MEDS: PRENATAL VITAMINS CHEWABLE TABLET PO (08:13)
[2017-11-30] MEDS: IBUPROFEN 600 MG TAB PO ×2 (10:08→17:54)
[2017-11-30] MEDS: ACETAMINOPHEN 500 MG TAB PO ×2 (15:38→22:53)
[2017-12-01] MEDS: IBUPROFEN 600 MG TAB PO ×2 (03:06→16:11)
[2017-12-01] MEDS: PRENATAL VITAMINS CHEWABLE TABLET PO (07:38)
[2017-12-01] MEDS: ACETAMINOPHEN 500 MG TAB PO ×2 (11:18→19:41)
[2017-12-02] MEDS: IBUPROFEN 600 MG TAB PO ×2 (01:11→09:21)
[2017-12-02] MEDS: ACETAMINOPHEN 500 MG TAB PO ×2 (06:43→13:52)
[2017-12-02] MEDS: PRENATAL VITAMINS CHEWABLE TABLET PO (09:21)
== END 2017-12-02 17:42 | disposition home or self-care (01) | DRG 775 ==
LOC: M LDO 17:37 → M OBS 11-30 07:38 → M LDI 17:40
PROVIDERS: Advanced Practice Midwife
PROC: 10E0XZZ Delivery of Products of Conception, External Approach (ICD-10-PCS; principal; 2017-11-30)
PROC: 0HQ9XZZ Repair Perineum Skin, External Approach (ICD-10-PCS; 2017-11-30)
PROC: 0UQMXZZ Repair Vulva, External Approach (ICD-10-PCS; 2017-11-30)
DX: O42.02 Full-term premature rupture of membranes, onset of labor within 24 hours of rupture (principal); O77.0 Labor and delivery complicated by meconium in amniotic fluid; Z3A.37 37 weeks gestation of pregnancy; O71.82 Other specified trauma to perineum and vulva; O70.0 First degree perineal laceration during delivery; Z37.0 Single live birth

== ENCOUNTER → 2018-01-31 | Outpatient (CLI) | payer OTHER, MEDICAID | LOC: M LRY 08:35 | DX: M25.561 Pain in right knee (principal) | CPT/HCPCS: 73564 ==

== ENCOUNTER → 2018-02-16 | Outpatient (CLI) | payer OTHER, MEDICAID ==
[2018-02-21 08:47] LABS: HCG, SERUM QUANTITATIVE 39 MIU/ML
== END ==
LOC: M LRY 12:30
DX: O20.0 Threatened abortion (principal)
CPT/HCPCS: 84702

== ENCOUNTER 2018-02-18 19:33 | Emergency (ER) | payer OTHER, MEDICAID ==
[2018-02-18 20:51] LABS: BASO % 0.4 % (0.0-1.0); EOS # 0.3 10^3/uL (0.0-0.50); HEMATOCRIT 36.6 % (36.0-47.0); IMMATURE GRANULOCYTE % 0.2 % (0-3.0); LYMPH # 3.4 10^3/uL (1.5-6.5); MEAN CORPUSCULAR HEMOGLOBIN 26.8 pg (27.0-33.0); MEAN CORPUSCULAR HGB CONC 32.8 g/dl (32.0-36.5); MEAN CORPUSCULAR VOLUME 81.9 fl (80.0-96.0); MONO # 0.7 10^3/uL (0.0-0.8); MONO % 8.3 % (0.0-5.0); NEUTROPHILS # 4.1 10^3/uL (1.8-7.7); NEUTROPHILS % 48.1 % (36.0-66.0); PLATELET COUNT, AUTOMATED 338 10^3/uL (150-450); RED BLOOD COUNT 4.47 10^6/uL (4.00-5.40); RED CELL DISTRIBUTION WIDTH 14.6 % (11.5-14.5); WHITE BLOOD COUNT 8.5 10^3/uL (4.0-10.0)
[2018-02-18 21:03] LABS: CONTROL LINE HCG INT CTR LINE PRESENT; HCG, SERUM QUALITATIVE NEGATIVE (NEGATIVE)
[2018-02-18 21:07] LABS: ANION GAP 5 MEQ/L (8-16); BLOOD UREA NITROGEN 12 MG/DL (7-18); CALCIUM LEVEL 8.7 MG/DL (8.5-10.1); CARBON DIOXIDE LEVEL 27 MEQ/L (21-32); CHLORIDE LEVEL 109 MEQ/L (98-107); CREATININE FOR GFR 1.01 MG/DL (0.55-1.30); GLOMERULAR FILTRATION RATE > 60.0 (>60); GLUCOSE, FASTING 84 MG/DL (70-100); SODIUM LEVEL 141 MEQ/L (136-145)
[2018-02-18 21:08] LABS: KETONE, URINE AUTO RFX NEGATIVE (NEGATIVE); LEUKOCYTE ESTERASE UR AUTO RFX NEGATIVE (NEGATIVE); MUCUS, URINE RFX SMALL (NEGATIVE); NITRITE, URINE AUTO RFX NEGATIVE (NEGATIVE); RBC, URINE AUTO RFX 1 /HPF (0-3); SPECIFIC GRAVITY UR AUTO RFX 1.025 (1.002-1.035); SQUAM EPITHELIAL CELL UR AURFX 0 /HPF (0-6); WBC, URINE AUTO RFX 1 /HPF (0-3)
== END 2018-02-18 22:10 | disposition home or self-care (01) ==
LOC: M ED 19:33
DX: N93.9 Abnormal uterine and vaginal bleeding, unspecified (principal); R10.2 Pelvic and perineal pain; J45.909 Unspecified asthma, uncomplicated; Z97.5 Presence of (intrauterine) contraceptive device; Z91.018 Allergy to other foods; Z79.51 Long term (current) use of inhaled steroids; Z79.899 Other long term (current) drug therapy
CPT/HCPCS: 84703

== ENCOUNTER → 2018-04-04 | Outpatient (REF) | payer OTHER, MEDICAID ==
[2018-04-04 18:16] LABS: CHLAMYDIA DNA AMPLIFICATION NEGATIVE (NEGATIVE); GC DNA AMPLIFICATION NEGATIVE (NEGATIVE)
== END ==
LOC: M SFHCLERA 10:28
DX: N39.0 Urinary tract infection, site not specified (principal)

== ENCOUNTER 2018-08-13 20:04 | Emergency (ER) | payer MEDICAID, OTHER | END 2018-08-14 03:42 | disposition home or self-care (01) | LOC: M ED 08-14 03:42 | DX: T76.21XA Adult sexual abuse, suspected, initial encounter (principal); Y07.59 Other non-family member, perpetrator of maltreatment and neglect; Y92.89 Other specified places as the place of occurrence of the external cause; J45.909 Unspecified asthma, uncomplicated; G43.909 Migraine, unspecified, not intractable, without status migrainosus; Z79.899 Other long term (current) drug therapy; Z79.51 Long term (current) use of inhaled steroids; Z91.018 Allergy to other foods; Z87.891 Personal history of nicotine dependence | CPT/HCPCS: 99284 ==

== ENCOUNTER → 2018-11-18 | Outpatient (REF) | payer MEDICAID ==
[~2018-11-18] MED LIST: ADDE1TAB14 PO; ALBU83IN INH; BREO1INH INH; BREO1INH3 INH; COLA100C5 PO; IBUP-1114 PO; MAPA500T2 PO; PRENTAB55 PO; VENTAER IN; ZOLO50TA PO; [UNRECOGNIZED DRUG - CODE] PO
== END ==
LOC: M SFHCLERA 10:47
PROVIDERS: ATTEND Nurse Practitioner Family
DX: R53.81 Other malaise (principal)

== ENCOUNTER 2018-11-22 12:31 | Emergency (ER) | payer MEDICAID ==
[~2018-11-22] VITALS: Ht 167.6 cm; Wt 109.1 kg
[2018-11-22 12:31] VITALS: BP 125/77
== END 2018-11-22 13:11 | disposition left against medical advice (07) ==
LOC: M ED 12:31
DX: Z53.29 Procedure and treatment not carried out because of patient's decision for other reasons (principal)

== ENCOUNTER → 2018-11-22 | Outpatient (CLI) | payer MEDICAID ==
--- NOTE | 2018-11-22 16:19 | REP ---
Clinical: Acute bronchitis . Comparison: 10/13/2017 . Technique: PA and lateral. Findings: The mediastinum and cardiac silhouette are normal. The lung alvarenga are clear and without acute consolidation, effusion, or pneumothorax. The skeletal structures are intact and normal. Impression: 1. No acute cardiopulmonary process. Electronically Signed by Gagan Allison MD 11/22/2018 04:10 P
== END ==
LOC: M LRY 15:34
PROVIDERS: ATTEND Family Medicine
DX: J20.9 Acute bronchitis, unspecified (principal)

== ENCOUNTER → 2018-12-11 | Outpatient (REF) | payer OTHER ==
[2018-12-11 20:43] LABS: FREE T4 0.97 NG/DL (0.76-1.46); THYROID STIMULATING HORMONE 1.17 uIU/ML (0.358-3.740)
== END ==
LOC: M SFHCLERA 17:12
PROVIDERS: ATTEND Family Medicine
DX: M54.2 Cervicalgia (principal)